=== PATIENT | male | born 1970 | race Caucasian/White ===

== ENCOUNTER 2023-10-12 14:15 | Emergency (ER) | payer BC ==
[~2023-10-12] VITALS: Ht 182.9 cm; Wt 148.4 kg
[2023-10-12] MEDS ORDERED: HYDROCHLOROTH12.5 MG PO (14:33)
[2023-10-12] MEDS ORDERED: HYDROCODONE/ACETA 7.5/325 TAB PO ONE (14:45)
[2023-10-12] MEDS ORDERED: ACETAMINOPHEN 500 MG TAB PO ONE (14:45)
[2023-10-12] MEDS ORDERED: lisinopriL 10 MG TAB PO ONE (15:30)
[2023-10-12] MEDS ORDERED: HYDROCODON-ACE1 EA11 PO (15:30)
[2023-10-12] MEDS ORDERED: LISINOPRIL10 MG PO (15:30)
[2023-10-12 16:00] VITALS: BP 164/106
== END 2023-10-12 16:00 | disposition home or self-care (01) ==
LOC: ED 14:15
DX: S52.501A Unspecified fracture of the lower end of right radius, initial encounter for closed fracture (principal); S93.402A Sprain of unspecified ligament of left ankle, initial encounter; S20.214A Contusion of middle front wall of thorax, initial encounter; I10 Essential (primary) hypertension; V53.5XXA Driver of pick-up truck or van injured in collision with car, pick-up truck or van in traffic accident, initial encounter
CPT/HCPCS: 29125; 71045; 73110; 73610; 99284-25; A9270